=== PATIENT | female | born 1955 | race Caucasian/White ===

== ENCOUNTER 2019-04-08 06:36 | Observation (INO) | payer BC, MEDICARE ==
[2019-04-08] MEDS ORDERED: Azithromycin 500 mg/250 ml NS 500 MG/250 ML BAG IVPB ONE (06:45)
[2019-04-08] MEDS ORDERED: methylPREDNISolone 125 MG* 2 ML VIAL IV ONE (06:45)
[2019-04-08] MEDS ORDERED: Albuterol/Ipratropium NEB.SOL* Albuterol 2.5 MG/Ipratropium 0.5 MG 3 ML INH ONE (06:45)
[2019-04-08] MEDS ORDERED: cefTRIAXone(*) 1 GM in NS 0.9% 50 ML* 50 ML IVPB ONE (06:45)
[2019-04-08] MEDS ORDERED: NS 0.9% 1000 ML** 1,000 ML IV ONE (06:47)
--- NOTE | 2019-04-08 06:48 | ED ---
Shortness of Breath - HPI Summary HPI Summary: Pt. is a 63 y.o female who presents to the ER via EMS in respiratory distress. Pt. has a hx of COPD and is still a daily smoker. Pt. states she has been feeling SOB for the last 2 weeks. Pt. denies fever, CP, abd. pain, vomiting. Pt. states she had an old albuterol treatment and tried that last night without improvement. Pt.'s O2 saturation reportedly low 80's on RA upon EMS arrival. Symptoms are severe in severity. No current modifying factors. - History of Current Complaint Time Seen by Provider: 04/08/19 06:41 Hx Obtained From: Patient - Allergy/Home Medications Allergies/Adverse Reactions: Allergies Allergy/AdvReac Type Severity Reaction Status Date / Time No Known Allergies Allergy Verified 03/11/16 07:15 PMH/Surg Hx/FS Hx/Imm Hx Previously Healthy: Yes Cardiovascular History: Reports: Hx Hypertension History: Denies: Hx Kidney Stones, Hx Renal Disease Infectious Disease History: No Infectious Disease History: Denies: Traveled Outside the [place] in Last 30 Days - Family History Known Family History: Positive: Non-Contributory Negative: Renal Disease - Social History Occupation: Retired Lives: With Family Alcohol Use: Daily Substance Use Type: Reports: None Smoking Status (MU): Heavy Every Day Tobacco Smoker Type: Cigarettes Amount Used/How Often: >PPD Review of Systems Constitutional: Negative Negative: Fever Cardiovascular: Negative Negative: Palpitations, Chest Pain Positive: Shortness Of Breath, Cough Gastrointestinal: Negative Neurological: Negative All Other Systems Reviewed And Are Negative: Yes Physical Exam Triage Information Reviewed: Yes Vital Signs On Initial Exam: Initial Vitals Temp Pulse Resp BP Pulse Ox 99.0 F 119 24 154/88 84 04/08/19 06:40 04/08/19 06:40 04/08/19 06:40 04/08/19 06:40 04/08/19 06:40 Vital Signs Reviewed: Yes Appearance: Positive: Ill-Appearing - Pt. sitting up in bed with knees pulled to chest. On nonrebreather. Able to speak in short sentences and answers questions appropriately. Skin: Positive: Warm, Dry Head/Face: Positive: Normal Head/Face Inspection Eyes: Positive: Normal, EOMI Neck: Positive: Supple Respiratory/Lung Sounds: Positive: Other - Diminished breath sounds through with expiratory wheeze. + accessory muscle use. Cardiovascular: Positive: Tachycardia Neurological: Positive: Normal, Alert, Oriented to Person Place, Time, CN Intact II-III Psychiatric: Positive: Affect/Mood Appropriate Diagnostics - Vital Signs Vital Signs Temp Pulse Resp BP Pulse Ox 04/08/19 06:40 99.0 F 119 24 154/88 84 - Laboratory Result Diagrams: 04/08/19 07:20 04/08/19 07:20 Lab Statement: Any lab studies that have been ordered have been reviewed, and results considered in the medical decision making process. Course/Dx - Course Course Of Treatment: Pt. presenting in respiratory distress. O2 saturation initially 84% on RA. Tachycardic. BP stable. Pt. placed on nonrebeather and duoneb started. Solumedrol ordered. Suspect COPD exacerbation given hx. Antibiotics ordered as well. ECG done at 0655 shows a sinus rhythm of 99bpm, normal axis, no STEMI. CXR negative for infiltrate or effusion, per radiology. Labs are unremarkable. On re-exam pt. breathing a bit easier. She is moving more air but still wheezing. O2 titrated down. On room air pt. still drops into low 80's at rest. Hospitalist contacted for admission. I spoke with Dr. Pollock and he will accept pt. to his service. - Diagnoses Differential Diagnosis/HQI/PQRI: Positive: Asthma, CHF, COPD Exacerbation, GA, Pneumonia Provider Diagnoses: COPD exacerbation, Hypoxia Discharge - Sign-Out/Discharge Documenting (check all that apply): Patient Departure Patient Received Moderate/Deep Sedation with Procedure: No - Discharge Plan Condition: Stable Disposition: ADMITTED TO [facility] Referrals: Azalea Crook MD [Primary Care Provider] - - Billing Disposition and Condition Condition: STABLE Disposition: Admitted to [facility]
[2019-04-08 07:34] LABS: ABS Basophils 0.1 10^3/ul (0-0.2); ABS Eosinophils 0.1 10^3/ul (0-0.6); ABS Lymphocytes 0.8 10^3/ul (1.0-4.8); ABS Monocytes 0.3 10^3/ul (0-0.8); ABS Neutrophils 6.1 10^3/ul (1.5-7.7); Hematocrit 44 % (35-47); Hemoglobin 15.2 g/dL (12.0-16.0); Lymphocyte % 10.7 %; Mean Corpuscular HGB Conc 35 g/dL (31-36); Mean Corpuscular Hemoglobin 30 pg (27-31); Mean Corpuscular Volume 86 fL (80-97); Mean Platelet Volume 8.9 fL (7.4-10.4); Platelet Count 208 10^3/uL (150-450); Red Cell Distribution Width 13 % (10-15); White Blood Count 7.3 10^3/uL (3.5-10.8)
[2019-04-08 07:42] LABS: Albumin 4.6 g/dL (3.2-5.2); Anion Gap 11 mmol/L (2-11); CO2 Carbon Dioxide 22 mmol/L (22-32); Calcium 9.5 mg/dL (8.6-10.3); Chloride 100 mmol/L (101-111); Potassium 3.2 mmol/L (3.5-5.0); Sodium 133 mmol/L (135-145)
[2019-04-08 07:44] LABS: Activated Partial Thrombo Time 34.2 seconds (26.0-38.0); INR 0.99 (0.82-1.09)
[2019-04-08 07:48] LABS: ALT 10 U/L (7-52); AST 19 U/L (13-39); Albumin/Globulin Ratio 1.7 (1-3); Alkaline Phosphatase 74 U/L (34-104); BUN/Creatinine Ratio 23.5 (8-20); Blood Urea Nitrogen 12 mg/dL (6-24); C Reactive Protein < 1.00 mg/L (<8.01); EGFR African American 146.4 (>60); Globulin 2.7 g/dL (2-4); Glucose 127 mg/dL (70-100); Total Protein 7.3 g/dL (6.4-8.9)
[2019-04-08] MEDS ORDERED: Albuterol HFA INHALER* 8 gm MDI INH PRN (10:42)
--- NOTE | 2019-04-08 10:59 | ADMNOTE ---
Subjective Date of Service: 04/08/19 Interval History: ADMISSION HISTORY AND PHYSICAL EXAM AND DISCHARGE SUMMARY: Allergies Allergy/AdvReac Type Severity Reaction Status Date / Time No Known Allergies Allergy Verified 03/11/16 07:15 Home Medications Medication Instructions Recorded Confirmed Type amLODIPine TAB* [Norvasc 5 mg TAB*] 1 tab PO DAILY 03/11/16 04/08/19 History HPI: The patient c/o several days increased SOB, orthopnea, scant cough. No chills or sweats, no wheezing. She has an outdated albuterol inhaler which she used but didn't help. After tx in ED she feels much better. Family History: Findings - umremarkable Social History: Findings - Smoker. Social drinker. Lives with her who is her SDM. does not smoke. Past Medical History: Unchanged from Admission - L shoulder surgery. 2 children Review of Systems - Measurements Intake and Output: Intake and Output Last 24 Hours 04/06/19 04/07/19 04/08/19 04/09/19 06:59 06:59 06:59 06:59 Intake Total 1050 Balance 1050 Weight 180 lb Intake: IV Fluids 1050 - Review of Systems Constitutional Symptoms: Negative: Weight Gain, Weight Loss, Weakness, Fatigue, Fever, Night Sweats, Unexplained Falls, Other Dermatology: Positive: Normal HEENT: Positive: Normal Eyes: Positive: Normal Thyroid: Positive: Normal Pulmonary: Positive: Cough, Shortness of Breath, COPD Cardiology: Positive: Normal Gastroenterology: Positive: Normal Genital - Urinary: Positive: Normal Musculoskeletal: Negative: Joint Pain, Joint Stiffness, Arthritis, Osteoporosis, Low Back Pain , Sciatica, Joint Deformities, Kyphoscoliosis, Other Endocrinology: Positive: Normal Hematologic/Lymphatic: Negative: Anemia, Easy Bruising, Hx Leukemia, Hx Lymphoma, Use of Anticoagulant, Use of Antiplatelet Drugs, Other Neurology: Positive: Normal Psychiatry: Positive: Normal Allergic/Immunologic: Negative: Hx Anaphylaxis, Hx Angioedema, Hx Environmental, Hx Seasonal, Asthma, Hx HIV, Immunocompromise, Swollen Glands LymphNodes, Other Objective Active Medications: Albuterol (Ventolin Hfa Inhaler*) 1 puff INH Q4H PRN PRN Reason: SOB/WHEEZING Azithromycin (Zithromax Tab*) 250 mg PO DAILY DWIGHT Mometasone Furoate/Formoterol Fumar (Dulera 100/5 Mdi*) 2 puff INH BID DWIGHT Vital Signs - 8 hr 04/08/19 04/08/19 04/08/19 06:40 06:43 06:45 Temperature 99.0 F Pulse Rate 119 109 Respiratory 24 22 18 Rate Blood Pressure 154/88 154/88 (mmHg) O2 Sat by Pulse 84 93 99 Oximetry 04/08/19 04/08/19 04/08/19 07:21 07:51 08:21 Temperature Pulse Rate 99 93 102 Respiratory 18 20 16 Rate Blood Pressure 117/73 103/68 125/65 (mmHg) O2 Sat by Pulse 93 100 86 Oximetry 04/08/19 04/08/19 04/08/19 08:33 08:51 09:05 Temperature Pulse Rate 71 72 Respiratory 16 23 Rate Blood Pressure 119/65 116/68 (mmHg) O2 Sat by Pulse 95 95 97 Oximetry 04/08/19 04/08/19 09:21 09:55 Temperature Pulse Rate 70 78 Respiratory 23 23 Rate Blood Pressure 109/69 118/70 (mmHg) O2 Sat by Pulse 96 Oximetry Oxygen Devices in Use Now: Nasal Cannula, OxyMask Appearance: Alert, sitting up on ED stretcher. In good spirits. Looks comfortable. Eyes: No Scleral Icterus Ears/Nose/Mouth/Throat: Clear Oropharnyx, Mucous Membranes Moist Neck: NL Appearance and Movements; NL JVP, No Thyroid Enlargement, Masses Respiratory: Symmetrical Chest Expansion and Respiratory Effort, Clear to Percussion, - - diminished BS BL Abdominal: NL Sounds; No Tenderness; No Distention, No Hepatosplenomegaly, - Extremities: No Edema, No Clubbing, Cyanosis, - Skin: No Rash or Ulcers, No Nodules or Sclerosis, - Neurological: Alert and Oriented x 3, NL Sensation Result Diagrams: 04/08/19 07:20 04/08/19 07:20 Assess/Plan/Problems-Billing Assessment: - Patient Problems (1) COPD exacerbation Current Visit: Yes Status: Acute Code(s): J44.1 - CHRONIC OBSTRUCTIVE PULMONARY DISEASE W (ACUTE) EXACERBATION SNOMED Code(s): 666749538 Comment: Mometasone/formoterol bid, albuterol MDI PRN, complete 5 days azith course. Will need home O2 as O2 sat 86% on RA at rest in ED. (2) Tobacco abuse Current Visit: Yes Status: Acute Code(s): Z72.0 - TOBACCO USE SNOMED Code( s): 784026134 Comment: Pt advised to quit smoking and avoid second hand smoke. (3) HTN (hypertension) Current Visit: Yes Status: Acute Code(s): I10 - ESSENTIAL (PRIMARY) HYPERTENSION SNOMED Code(s): 04910538 Comment: Continue home dose amlodipine. Status and Disposition: DISCHARGE DISPOSITION: home DISCHARGE CONDITION: stable. DISCHARGE DIAGNOSIS: 1. COPD exacerbation 2. HTN 3. Tobacco use DISCHARGE MEDS: 1. Azithromycin 250 mg daily for 4 days. 2. Albuterol MDI 2 puffs q 4 hr PRN 3. Mometasone/formoterol 100/5 1 puff bid 4. Amlodipine 5 mg daily.
[2019-04-08] MEDS ORDERED: Mometasone/Formoter 100/5 MDI INH SCH (11:00)
[2019-04-08 15:58] VITALS: BP 119/50
[2019-04-08] MEDS ORDERED: amLODIPine TAB* 5 MG PO SCH (21:00)
[2019-04-09] MEDS ORDERED: Azithromycin TAB* 250 MG PO SCH (09:00)
== END 2019-04-08 18:00 | disposition home or self-care (01) ==
LOC: ED 06:36 → MED 10:41
PROVIDERS: ADMIT Internal Medicine; ATTEND Internal Medicine
DX: J44.1 Chronic obstructive pulmonary disease with (acute) exacerbation (principal); I10 Essential (primary) hypertension; R06.02 Shortness of breath; F17.210 Nicotine dependence, cigarettes, uncomplicated
CPT/HCPCS: 36415; 71045; 80053; 82803; 83605; 83880; 84484; 85025; 85610; 85730; 86140; 87040; 93005; 96374; 99284; A9270-GY; G0378; J0456; J0696; J2930